=== PATIENT | female | born 1970 | race Caucasian/White ===

== ENCOUNTER 2022-09-06 11:05 | Emergency (ER) | payer MEDICARE ==
[~2022-09-06] VITALS: Wt 99.8 kg
[~2022-09-06 11:05] MED LIST: 'PARAFON FORTE500 M1 PO; DAYPRO600 M1 PO; FLAGYL500 MG PO; FLEXERIL10 MG PO; HYDROCODONE BIT1 T11 PO; MOTRIN600 MG PO; NAPROSYN500 MG PO; PREDNICOT20 MG PO; ROBAXIN750 MG PO; VISTARIL25 M1 PO
[2022-09-06] MEDS ORDERED: NEURONTIN300 MG PO (11:25)
[2022-09-06] MEDS ORDERED: PROAIR RESPICL90 MCG INH (11:26)
[2022-09-06] MEDS ORDERED: SINGULAIR10 M1 PO (11:26)
[2022-09-06] MEDS ORDERED: REMERON30 M1 PO (11:26)
== END 2022-09-06 13:45 | disposition home or self-care (01) ==
LOC: ED 11:05
DX: S62.652A Nondisplaced fracture of middle phalanx of right middle finger, initial encounter for closed fracture (principal); F41.9 Anxiety disorder, unspecified; J45.909 Unspecified asthma, uncomplicated; M79.7 Fibromyalgia; Z88.2 Allergy status to sulfonamides; Z90.710 Acquired absence of both cervix and uterus; Z98.890 Other specified postprocedural states; W22.03XA Walked into furniture, initial encounter; Y93.89 Activity, other specified; Y92.89 Other specified places as the place of occurrence of the external cause; Y99.8 Other external cause status